=== PATIENT | female | born 1990 | race Caucasian/White ===

== ENCOUNTER 2021-08-02 10:31 | Inpatient (IN) ==
[2021-08-02] MEDS ORDERED: Famotidine 20 MG/2 ML VIAL IVP PRN (10:46)
[2021-08-02] MEDS ORDERED: Metoclopramide 10 MG/2 ML VIAL IVP PRN (10:46)
[2021-08-02] MEDS ORDERED: *HR* Nalbuphine 10 MG/ML AMPUL IV PRN (10:46)
[2021-08-02] MEDS ORDERED: Ondansetron 4 MG/2 ML VIAL IVP PRN (10:46)
[2021-08-02] MEDS ORDERED: Naloxone 0.4 MG/ML INJ IVP PRN (10:46)
[2021-08-02] MEDS ORDERED: Ringers Solution, Lactated 1,000 ML IVC SCH (11:00)
[2021-08-02] MEDS ORDERED: FLU Vac QV 21-22 (6Month+)/PF 0.5 ML SYRINGE IM ONE (11:29)
[2021-08-02 11:35] LABS: Basophils % 0.3 %; Eosinophils % 0.1 %; Hematocrit 35.2 % (35.3-44.9); Hemoglobin 11.9 g/dL (11.5-15.4); Immature Granulocytes % 0.4 % (0-4); Lymphocytes # 1.4 K/mcL (0.6-4.6); Lymphocytes % 18.5 %; Mean Corpuscular HGB Conc 33.8 g/dL (31.6-35.5); Mean Corpuscular Hemoglobin 30.4 pg (28.0-33.3); Mean Corpuscular Volume 89.8 fL (83.0-100.0); Mean Platelet Volume 10.5 fL (9.4-12.4); Monocytes # 0.5 K/mcL (0.0-1.3); Monocytes % 6.3 %; Neutrophils # 5.7 K/mcL (1.6-8.9); Platelet Count 181 K/mcL (140-400); Red Blood Count 3.92 M/mcL (3.82-4.97); Red Cell Distribution Width 12.8 % (11.5-14.5); Segmented Neutrophils % 74.4 %; White Blood Count 7.6 K/mcL (4.3-11.1)
[2021-08-02] MEDS ORDERED: Oxytocin 20 units/ LR 1000 mL 20 UNIT/1,000 ML BAG IVC ONE (11:42)
[2021-08-02 11:45] LABS: Amphetamine Screen,Urine Negative ng/mL (Cutoff=1000); Barbiturate Screen,Urine Negative ng/mL (Cutoff=200); Benzodiazepines Screen,Urine Negative ng/mL (Cutoff=200); Cannabinoid Screen,Urine Negative ng/mL (Cutoff = 50); Cocaine Screen,Urine Negative ng/mL (Cutoff= 300); Opiate Screen,Urine Negative ng/mL (Cutoff=300); Phencyclidine Screen,Urine Negative ng/mL (Cutoff=25)
[2021-08-02 12:13] LABS: Influenza A PCR Negative (Negative); Influenza B PCR Negative (Negative); Resp. Syncytial Virus PCR Negative (Negative)
[2021-08-02 12:48] LABS: SARS-CoV-2 by PCR (In House) Negative (Negative)
[2021-08-02] MEDS ORDERED: Ropivacaine/PF 0.2% 20 ML VIAL EP ONE (13:06)
[2021-08-02] MEDS ORDERED: EPHEDrine 50 MG/ML VIAL IVP PRN (13:06)
[2021-08-02] MEDS ORDERED: *HR* FentaNYL (PF) 100 MCG/2 ML VIAL EP ONE (13:06)
[2021-08-02] MEDS ORDERED: Epidural Premix (fent/bupiv) 110 ML EP SCH (13:15)
[2021-08-02] MEDS ORDERED: *HR* FentaNYL (PF) 100 MCG/2 ML VIAL ONE (22:26)
[2021-08-02] MEDS ORDERED: Ropivacaine/PF 0.2% 20 ML VIAL ONE (22:26)
[2021-08-03] MEDS ORDERED: Oxytocin 20 units/ LR 1000 mL 20 UNIT/1,000 ML BAG IVC ONE ×2 (02:44→04:45)
[2021-08-03] MEDS ORDERED: Rho Immune Globulin 1,500 UNIT SYRINGE IM PRN (04:45)
[2021-08-03] MEDS ORDERED: Measles/Mumps/Rubella Vacc 0.5 ML VIAL SQ PRN (04:45)
[2021-08-03] MEDS ORDERED: Lanolin 7 G OINT...G. TP PRN (04:45)
[2021-08-03] MEDS ORDERED: Oxytocin 20 units/ LR 1000 mL 20 UNIT/1,000 ML BAG IVC SCH (04:45)
[2021-08-03] MEDS ORDERED: Benzocaine/Menthol 56 GM AEROSOL SPRAY TP PRN (04:45)
[2021-08-03] MEDS ORDERED: Ondansetron ODT 4 MG TAB.RAPDIS SL PRN (04:45)
[2021-08-03] MEDS: Prenatal Vit/FA 1 EACH TABLET PO SCH (08:19)
[2021-08-03] MEDS: Acetaminophen 325 MG TABLET PO SCH ×3 (08:19→22:17)
[2021-08-03] MEDS: Ibuprofen 600 MG TABLET PO SCH ×3 (08:20→22:18)
[2021-08-03] MEDS ORDERED: NON-FORMULARY MEDICATION 1 EACH EACH (Prenatal Vits96/Iron Fum/Folic [Prenatal Tablet] 1 E PO SCH (09:00)
[2021-08-04] MEDS: Ibuprofen 600 MG TABLET PO SCH ×3 (03:55→16:34)
[2021-08-04] MEDS: Acetaminophen 325 MG TABLET PO SCH ×3 (03:56→16:34)
[2021-08-04 05:35] LABS: Basophils % 0.3 %; Eosinophils # 0.1 K/mcL (0.0-0.6); Eosinophils % 0.8 %; Hematocrit 29.4 % (35.3-44.9); Immature Granulocytes % 0.2 % (0-4); Lymphocytes # 2.3 K/mcL (0.6-4.6); Lymphocytes % 25.5 %; Mean Corpuscular HGB Conc 31.6 g/dL (31.6-35.5); Mean Corpuscular Hemoglobin 29.7 pg (28.0-33.3); Mean Corpuscular Volume 93.9 fL (83.0-100.0); Mean Platelet Volume 10.7 fL (9.4-12.4); Monocytes # 0.6 K/mcL (0.0-1.3); Neutrophils # 5.8 K/mcL (1.6-8.9); Platelet Count 146 K/mcL (140-400); Red Blood Count 3.13 M/mcL (3.82-4.97); Red Cell Distribution Width 13.1 % (11.5-14.5); Segmented Neutrophils % 66.2 %; White Blood Count 8.8 K/mcL (4.3-11.1)
[2021-08-04 05:40] LABS: Hemoglobin 9.3 g/dL (11.5-15.4)
[2021-08-04] MEDS: Prenatal Vit/FA 1 EACH TABLET PO SCH (08:26)
[2021-08-04 21:23] VITALS: O2SAT 98
[2021-08-05] MEDS: Ibuprofen 600 MG TABLET PO SCH ×2 (00:02→10:27)
[2021-08-05] MEDS: Acetaminophen 325 MG TABLET PO SCH ×2 (00:03→10:28)
[2021-08-05 07:51] VITALS: BP 133/86; PULSE 65; TEMP 97.6
[2021-08-05] MEDS: Prenatal Vit/FA 1 EACH TABLET PO SCH (10:26)
== END 2021-08-05 12:00 | disposition home or self-care (01) | DRG 805 ==
LOC: 1NENULAB 10:31 → 1NENUOBS 08-03 04:47
PROVIDERS: ADMIT Student in an Organized Health Care Education/Training Program; ATTEND Student in an Organized Health Care Education/Training Program